=== PATIENT | male | born 1995 | race Caucasian/White ===

== ENCOUNTER 2016-11-18 13:42 | Emergency (ER) | payer OTHER ==
--- NOTE | ~2016-11-18 | CR93 ---
[facility]. [facility] A Service of [facility] & [facility] RADIOLOGY TEXT RESULTS PATIENT: BRIAN ROBERTS LOCATION: SED : 95 UNIT #: [id number] AGE: [address]: KANDICE BRUSH SEX: M ORDER DR: [id number] [id number] MR#: [id number] Acc #: [id number] NAME: BRIAN ROBERTS : 1995 SEX: M STUDY DATE/TIME: 11/18/2016 14:37 UNIT: SED ROOM: STUDY DESCRIPTION: CR Elbow Min 3 Views Lt Attending Physician: Kandice Brush Aprn Ordering Physician: Kandice Brush Aprn Primary Care Physician: Stella Castro M.D. MEDICAL IMAGING REPORT This report is preliminary unless electronic signature is present. EXAM Left elbow series 11/18/2016. HISTORY 21-year-old male complaining of left elbow pain and swelling after injury. Fell backwards onto elbow while skateboarding 1 week ago. TECHNIQUE Three-view left elbow series. FINDINGS No fracture, dislocation or other acute osseous abnormality is visible. No radiopaque soft tissue foreign body. IMPRESSION Negative left elbow series. Dictated by... Octaviano Cazares M.D. THIS IS AN ELECTRONICALLY VERIFIED REPORT Octaviano Cazares M.D. at 11/18/2016 8:51 PM RGW/pcl TD: 11/18/2016 17:52 JOB #: [id number] MEDICAL IMAGING REPORT Page 1 of 1
[~2016-11-18 13:42] MED LIST: FLEXERIL10 MG PO; IBUPROFEN800 MG PO; NO MEDICATIONS
== END 2016-11-18 16:12 | disposition home or self-care (01) ==
LOC: SED 13:42
DX: S50.02XA Contusion of left elbow, initial encounter (principal); W19.XXXA Unspecified fall, initial encounter; Y92.9 Unspecified place or not applicable
CPT/HCPCS: 29260; 73080; 99283